=== PATIENT | female | born 1990 | race Caucasian/White ===

== ENCOUNTER 2018-11-14 09:40 | Emergency (ER) | payer SELFPAY, MEDICAID | END 2018-11-14 16:04 | disposition left against medical advice (07) | LOC: FTE 16:04 | DX: Z53.21 Procedure and treatment not carried out due to patient leaving prior to being seen by health care provider (principal) ==

== ENCOUNTER 2019-02-11 12:20 | Emergency (ER) | payer SELFPAY | END 2019-02-11 14:44 | disposition home or self-care (01) | LOC: E/R 12:20 | DX: R21 Rash and other nonspecific skin eruption (principal); Z87.891 Personal history of nicotine dependence | CPT/HCPCS: 99283 ==